=== PATIENT | female | born 1990 | race African-American/Black ===

== ENCOUNTER 2017-03-08 18:17 | Emergency (ER) | payer SELFPAY ==
[2017-03-08 18:56] VITALS: BP 125/56; PULSE 125; TEMP 99.6; BMI 23.6
--- NOTE | 2017-03-08 19:50 | PDOC ---
History of Present Illness - General Chief Complaint: Vaginal Bleeding Stated Complaint: VAGINAL BLEEDING/5 WKS Time Seen by Provider: 03/08/17 19:49 History Source: Patient Exam Limitations: No Limitations - History of Present Illness Travel History: No Initial Comments: 03/08/17 20:22 LMP: 01/30/2017 OB: Dr. Lobato [phone] 26-year-old female with a history of asthma presents to the emergency department complaining of suprapubic cramping with vaginal spotting 8 hours. Patient describes discomfort as 5/10 nonradiating intermittent cramping discomfort without fever, chills, headache, nausea/vomiting, dizziness, lightheadedness, neck pains, back pains, chest pain, shortness of breath, flank pains, urinary symptoms: Frequency/urgency/hesitancy. There are no alleviating or exacerbating factors. 03/08/17 22:[address] Lobato/ Dr. Bradley covering will call back Timing/Duration: reports: intermittent Quality: reports: mild Abdominal Pain Onset Location: reports: suprapubic Pain Radiation: reports: no radiation Past History - Past Medical History Allergies/Adverse Reactions: Allergies Allergy/AdvReac Type Severity Reaction Status Date / Time No Known Drug Allergies Allergy Verified 03/08/17 18:52 Shellfish Allergy Swelling Verified 03/08/17 18:52 Home Medications: Ambulatory Orders Amox-Tr/K Cl [Augmentin 875-125mg Tablet -] 1 tab PO BID #20 tablet 04/12/14 Ibuprofen [Motrin -] 600 mg PO TID #21 tablet 04/12/14 Anemia: No Asthma: Yes (last attack"years"ago) Cancer: No Cardiac Disorders: No CVA: No COPD: No CHF: No Dementia: No Diabetes: No GI Disorders: No Disorders: No HTN: No Hypercholesterolemia: No Liver Disease: No Seizures: No Thyroid Disease: No - Surgical History Abdominal Surgery: Yes (ECTOPIC ) - Reproductive History (#): 6 Para: 1 Cervical CA: No Dysfunctional Uterine Bleeding: No Ectopic : Yes Endometrial CA: No Therapeutic (s) & number: Yes Tubal Ligation: No Spontaneous : 3 - Immunization History Immunization Up to Date: Yes - Suicide/Smoking/Psychosocial Hx Smoking Status: Yes Smoking History: Current every day smoker Have you smoked in the past 12 months: Yes Number of Cigarettes Smoked Daily: 6 Cigars Per Day: 0 Information on smoking cessation initiated: No 'Breaking Loose' booklet given: 02/13/14 Hx Alcohol Use: No Drug/Substance Use Hx: No Substance Use Type: None Hx Substance Use Treatment: No Review of Systems - Review of Systems Able to Perform ROS?: Yes Comments:: 03/08/17 20:24 CONSTITUTIONAL: Absent: fever, chills, diaphoresis, generalized weakness, malaise, loss of appetite HEENT: Absent: rhinorrhea, nasal congestion, throat pain, throat swelling, difficulty swallowing, mouth swelling, ear pain, eye pain, visual Changes CARDIOVASCULAR: Absent: chest pain, loss of consciousness, palpitations, irregular heart rate, peripheral edema RESPIRATORY: Absent: cough, shortness of breath, dyspnea with exertion, orthopnea, wheezing, stridor, hemoptysis GASTROINTESTINAL: Absent: abdominal pain, abdominal distension, nausea, vomiting, diarrhea, constipation, melena, hematochezia GENITOURINARY: Absent: dysuria, frequency, urgency, hesitancy, hematuria, flank pain, genital pain MUSCULOSKELETAL: Absent: myalgia, arthralgia, joint swelling SKIN: Absent: rash, itching, pallor HEMATOLOGIC/IMMUNOLOGIC: Absent: easy bleeding, easy bruising, lymphadenopathy, frequent infections ENDOCRINE: Absent: unexplained weight gain, unexplained weight loss, heat intolerance, cold intolerance NEUROLOGIC: Absent: headache, focal weakness or paresthesias, dizziness, unsteady gait, seizure, mental status changes, bladder or bowel incontinence PSYCHIATRIC: Absent: anxiety, depression, suicidal or homicidal ideation, hallucinations. Is the patient limited [place] proficient: No *Physical Exam - Vital Signs Last Vital Signs Temp Pulse Resp BP Pulse Ox 99.6 F 125 H 16 125/56 100 03/08/17 18:53 03/08/17 18:53 03/08/17 18:53 03/08/17 18:53 03/08/17 18:53 - Physical Exam Comments: 03/08/17 20:24 GENERAL: Well developed, well nourished. Awake and alert. No acute distress. HEENT: Normocephalic, atraumatic. PERRLA, EOMI. No conjunctival pallor. Sclera are non- icteric. Moist mucous membranes. Oropharynx is clear. NECK: Supple. Full ROM. No JVD. Carotid pulses 2+ and symmetric, without bruits. No thyromegaly. No lymphadenopathy. CARDIOVASCULAR: Regular rate and rhythm. No murmurs, rubs, or gallops. Distal pulses are 2+ and symmetric. PULMONARY: No evidence of respiratory distress. Lungs clear to auscultation bilaterally. No wheezing, rales or rhonchi. ABDOMINAL: Soft. Non-tender. Non-distended. No rebound or guarding. No organomegaly. Normoactive bowel sounds. SKIN: Warm and dry. Normal capillary refill. No rashes. No jaundice. Pelvic: External genitalia normal without lesions. Vaginal vault is clear without blood or discharge. Cervix is long and closed. 03/08/17 20:25 ED Treatment Course - LABORATORY CBC & Chemistry Diagram: 03/08/17 20:02 03/08/17 20:02 - RADIOLOGY Radiograph Interpretation: 03/08/17 22:29 Ultrasound transvaginal: Intrauterine gestational sac like structure with estimated gestational age of 5 weeks and 3 days. No yolk sac or pole are identified. Hypo-ectatic density within the endometrium cavity surrounding the sac measuring 2.4 x 1 cm in sagittal and AP dimension suggestive of hemorrhage. Close follow-up is recommended. Complex density in the left ovary measuring 1.9 x 1.4 cm suggestive of a hemorrhagic cyst. BICYCLE TECHNICIAN consult is suggested Progress Note - Progress Note Progress Note: Spoke to Dr. Rodriguez/ pt is to f/u tomorrow at the clinic for threatened AB *DC/Admit/Observation/Transfer Diagnosis at time of Disposition: Threatened UTI (urinary tract infection) Qualifiers: Urinary tract infection type: acute cystitis Hematuria presence: without hematuria Qualified Code(s): N30.00 - Acute cystitis without hematuria - Discharge Dispostion Disposition: HOME Condition at time of disposition: Stable Admit: No - Referrals Referrals: Nessa Dupree MD [Staff Physician] - - Patient Instructions Printed Discharge Instructions: DI for Threatened , Urinary Tract Infection Additional Instructions: Your Beta is 4939.2 Follow up with at the clinic as per Dr. Dubose Take your antibiotics Increase fluids Return to the ER for severe/persistent/worsening symptoms
[2017-03-08 20:26] LABS: BASOPHIL 0.9 % (0-2.0); EOSINOPHIL 0.7 % (0-4.5); MCH 25.8 pg (25.7-33.7); MCHC 33.9 g/dl (32.0-36.0); MEAN PLT VOLUME 9.1 fl (7.5-11.1); NEUTROPHILS 70.8 % (42.8-82.8); PLATELET COUNT 258 K/MM3 (134-434); RDW 16.5 % (11.6-15.6); WHITE BLOOD COUNT 13.2 K/mm3 (4.0-10.0)
[2017-03-08 20:36] LABS: URINE APPEARANCE SLCLOUDY; URINE BILIRUBIN NEGATIVE (NEGATIVE); URINE BLOOD 3+ (NEGATIVE); URINE COLOR AMBER; URINE GLUCOSE (UA) NEGATIVE (NEGATIVE); URINE KETONE NEGATIVE (NEGATIVE); URINE NITRITE NEGATIVE (NEGATIVE)
[2017-03-08 20:44] LABS: URINE LEUK ESTERASE 2+ (NEGATIVE); URINE PROTEIN 2+ (NEGATIVE)
[2017-03-08 20:48] LABS: ANION GAP 6 (8-16); BILIRUBIN,TOTAL 0.4 mg/dL (0.2-1.0); CALCIUM 9.2 mg/dL (8.5-10.1); CO2 23 mmol/L (21-32); CREATININE 0.8 mg/dL (0.55-1.02); GLUCOSE,RANDOM 93 mg/dL (74-106); SGOT/AST 10 U/L (15-37); SGPT/ALT 15 U/L (12-78); TOT PROT 7.5 g/dl (6.4-8.2)
[2017-03-08 21:03] LABS: ALK PHOS 53 U/L (45-117)
[2017-03-08 22:01] LABS: URINE HYALINE CAST 23 /lpf; URINE MUCUS MANY; URINE RBC 24 /hpf (0-3); URINE WBC 54 /hpf (3-5)
[2017-03-08] MEDS ORDERED: NITROFURANTOIN MACROCRYSTAL 50 MG CAPSULE (FP) PO SCH (23:45)
== END 2017-03-08 23:46 | disposition home or self-care (01) ==
LOC: JER 18:17
DX: O20.0 Threatened abortion (principal); O23.11 Infections of bladder in pregnancy, first trimester; N30.90 Cystitis, unspecified without hematuria; Z3A.01 Less than 8 weeks gestation of pregnancy
CPT/HCPCS: 36415; 76817-TC; 80053; 81003; 81015; 84702; 85025; 86850; 86900; 86901; 99281-25

== ENCOUNTER 2017-11-08 13:15 | Inpatient (IN) | payer OTHER ==
--- NOTE | 2017-11-08 13:36 | PN ---
Progress Note (short form) - Note Progress Note: cx 2 cm 50 vx -3 mi, fhr cat 1, no contraction , cervidil rba discussed , cervidil inserted 1.28 pm
[2017-11-08] MEDS ORDERED: BUTORPHANOL TARTRATE 1 MG/ML VIAL IVPUSH ONE (13:41)
[2017-11-08] MEDS ORDERED: PROMETHAZINE HCL 25 MG/1 ML VIAL IVPB ONE (13:41)
--- NOTE | 2017-11-08 13:41 | HP ---
Past Medical History - Primary Care Physician PCP:: Luciano Madden - Admission Chief Complaint: 40.2 weeks, request of induction History Source: Patient Limitations to Obtaining History: No Limitations - Past Medical History Pulmonary: Yes: Asthma (since but no recent attacks, on no meds) Gastrointestinal: Yes: Gastritis (pt was taking zantac 150 mg po bid, since last admission on 02/12/14. stopped few days ago.), Other Heme/Onc: Yes: Anemia Psych: Yes: Other (insomnia) - Past Surgical History Hx Myomectomy: No Hx Transabdominal Cerclage: No - Smoking History Smoking history: Current every day smoker Have you smoked in the past 12 months: Yes Aproximately how many cigarettes per day: 6 - Alcohol/Substance Use Hx Alcohol Use: No History of Substance Use: reports: Marijuana (? stopped in december drug screen pos in november,. drug screen neg in 02/12/14 admission) - Social History ADL: Independent History of Recent Travel: No Home Medications - Allergies Allergies/Adverse Reactions: Allergies Allergy/AdvReac Type Severity Reaction Status Date / Time Shellfish Allergy Severe Swelling Verified 10/25/17 21:37 No Known Drug Allergies Allergy Verified 10/25/17 21:37 - Home Medications Home Medications: Ambulatory Orders NK [No Known Home Medication] 09/11/17 Family Disease History - Family Disease History Family Disease History: Other: Son (alive, age 4) Review of Systems - Review of Systems Constitutional: reports: Weakness Eyes: reports: No Symptoms HENT: reports: No Symptoms Neck: reports: No Symptoms Cardiovascular: reports: No Symptoms Respiratory: reports: No Symptoms Gastrointestinal: reports: Nausea Genitourinary: reports: Frequency Musculoskeletal: reports: Back Pain, Muscle Pain Integumentary: reports: No Symptoms Neurological: reports: No Symptoms Endocrine: reports: No Symptoms Hematology/Lymphatic: reports: No Symptoms Psychiatric: reports: No Symptoms Physical Exam - Maternity Constitutional: Yes: Well Nourished, No Distress, Calm Eyes: Yes: WNL, Conjunctiva Clear, EOM Intact HENT: Yes: WNL, Atraumatic, Normocephalic Neck: Yes: WNL, Supple, Trachea Midline Cardiovascular: Yes: WNL, Regular Rate and Rhythm Breast(s): Yes: WNL - Abdominal Exam/OB Fundal Height: 38 Number of Fetuses: Single Presentation: Vertex Contractions: No Intensity: Unaware Monitor Mode: External Heart Rate Location: LLQ Accelerations: Uniform Decelerations: None - Vaginal Exam/OB Speculum Exam: No Dilatation (cm): 2 cm Effacement (%): 50 Amniotic Membrane Status: Intact Presentation: Vertex/Position Station: -3 - Physical Exam Musculoskeletal: Yes: WNL Extremities: Yes: WNL Edema: Yes Edema: LLE: Trace, RLE: Trace Integumentary: Yes: WNL Deep Tendon Reflex Grade: Normal +2 ...Motor Strength: WNL Psychiatric: Yes: WNL Hemorrhage Risk Assessment - Risk Factors Medium Risk Factors: Yes: None High Risk Factors: Yes: None Risk Score: 1 Risk Level: Medium Risk Problem List - Problems (1) Post term over 40 weeks Code(s): O48.0 - POST-TERM (2) Elective induction of labor planned Code(s): [id number] - Assessment/Plan admit, fhm, cervidil induction, rba discussed
[2017-11-08] MEDS ORDERED: DEXTROSE 5%-LACTATED RINGERS 1,000 ML IV SCH (13:45)
[2017-11-08 14:49] VITALS: BMI 26.5
[2017-11-08] MEDS ORDERED: DINOPROSTONE 10 MG VAGINAL SUPPOSITORY VG ONE (17:00)
[2017-11-08] MEDS ORDERED: PROMETHAZINE HCL 25 MG/1 ML VIAL ONE (18:32)
[2017-11-08] MEDS ORDERED: BUTORPHANOL TARTRATE 1 MG/ML VIAL ONE ×2 (18:32)
[2017-11-08 20:17] LABS: BASO % 0.5 % (0-2.0); HEMATOCRIT 28.5 % (32.4-45.2); HEMOGLOBIN 9.6 GM/dL (10.7-15.3); LYMPH % 24.1 % (8-40); MCH 25.4 pg (25.7-33.7); MCHC 33.8 g/dl (32.0-36.0); MEAN CELL VOLUME 75.1 fl (80-96); MEAN PLT VOLUME 9.7 fl (7.5-11.1); MONO % 5.2 % (3.8-10.2); NEUT % 69.2 % (42.8-82.8); PLATELET COUNT 246 K/MM3 (134-434); RDW 14.7 % (11.6-15.6); WHITE BLOOD COUNT 10.7 K/mm3 (4.0-10.0)
--- NOTE | 2017-11-08 20:33 | PN ---
Progress Note (short form) - Note Progress Note: cx 4 cm 80 vx -2 arom clear, fhr cat1, irregular contraction Problem List - Problems (1) Post term over 40 weeks Code(s): O48.0 - POST-TERM (2) Elective induction of labor planned Code(s): [id number] -
[2017-11-08] MEDS ORDERED: FENTANYL/BUPIVACAINE/NS/PF - PCEA - 50 ML DISP.SYRIN EP ONE (20:34)
[2017-11-08] MEDS ORDERED: ELECTROLYTE-148 SOLN 1,000 ML IV ONE (20:43)
[2017-11-08 20:45] LABS: ANION GAP 8 (8-16); BLOOD UREA NITROGEN 10 mg/dL (7-18); CALCIUM 8.3 mg/dL (8.5-10.1); CHLORIDE 105 mmol/L (98-107); CO2 25 mmol/L (21-32); CREATININE 0.6 mg/dL (0.55-1.02); GLUCOSE,RANDOM 82 mg/dL (74-106); POTASSIUM 3.9 mmol/L (3.5-5.1); SODIUM 138 mmol/L (136-145)
[2017-11-08 20:50] LABS: INR 0.86 (0.82-1.09); PROTHROMBIN TIME (PATIENT) 9.7 SEC (9.7-13.0)
[2017-11-08] MEDS ORDERED: ELECTROLYTE-148 SOLN 1,000 ML IV SCH (21:15)
--- NOTE | 2017-11-08 21:17 | PN ---
Progress Note (short form) - Note Progress Note: cx 4 cm , cervidil removed , irregular contraction Problem List - Problems (1) Post term over 40 weeks Code(s): O48.0 - POST-TERM (2) Elective induction of labor planned Code(s): [id number] -
[2017-11-08] MEDS ORDERED: OXYTOCIN 30 UNITS in 0.9% NS 30 UNIT/500 ML INFUS.BAG IVPB SCH (21:30)
[2017-11-08] MEDS ORDERED: OXYTOCIN 30 UNITS in 0.9% NS 30 UNIT/500 ML INFUS.BAG IVPB ONE (21:30)
[2017-11-08] MEDS ORDERED: NALOXONE HCL 0.4 MG/ML VIAL IVPUSH PRN (21:56)
[2017-11-08] MEDS ORDERED: FENTANYL/BUPIVACAINE/NS/PF - PCEA - 50 ML DISP.SYRIN EP SCH (22:00)
[2017-11-08] MEDS ORDERED: OXYTOCIN 20 UNITS in 0.9% NS 20 UNIT/1,000 ML INFUS.BAG IV ONE (23:29)
[2017-11-09] MEDS ORDERED: BISACODYL 10 MG SUPP.RECT RC PRN (00:02)
[2017-11-09] MEDS ORDERED: BENZOCAINE 28 GM HEMORRHOIDAL OINTMENT TP PRN (00:02)
[2017-11-09] MEDS ORDERED: oxyCODONE HCL 5 MG TABLET PO PRN (00:02)
[2017-11-09] MEDS ORDERED: METHYLERGONOVINE MALEATE 0.2 MG/1 ML AMP IM PRN (00:02)
[2017-11-09] MEDS ORDERED: BENZOCAINE 20% 57 GM BOTTLE TP PRN (00:02)
[2017-11-09] MEDS ORDERED: WITCH HAZEL 50% (TUCKS) 40 PAD/JAR PAD TP PRN (00:02)
[2017-11-09] MEDS ORDERED: OXYTOCIN 20 UNITS in 0.9% NS 20 UNIT/1,000 ML INFUS.BAG IV SCH (00:15)
[2017-11-09] MEDS ORDERED: D5W-LR W/ 20 UNITS OXYTOCIN 1,000 ML IV SCH (00:15)
[2017-11-09] MEDS: ACETAMINOPHEN 325 MG TABLET (FP) PO PRN ×3 (03:54→20:54)
[2017-11-09] MEDS: IBUPROFEN 600 MG TABLET (FP) PO PRN ×4 (03:56→20:55)
[2017-11-09] MEDS ORDERED: OXYTOCIN 20 UNITS in 0.9% NS 20 UNIT/1,000 ML INFUS.BAG IV ONE (06:38)
--- NOTE | 2017-11-09 08:50 | PN ---
Post Progress Note - Subjective Subjective: c/o cramps Post Day: 1 Type of Delivery: Vital Signs: Vital Signs Temperature 98 F 11/09/17 06:00 Pulse Rate 65 11/09/17 06:00 Respiratory Rate 18 11/09/17 06:00 Blood Pressure 98/62 11/09/17 06:00 O2 Sat by Pulse Oximetry (%) 100 11/09/17 00:55 Breast Exam: Yes: Soft, Other (declines to BF ). No: Engorged Uterus: Yes: Fundus Firm, Fundus below umbilicus, Non-tender Lochia: Yes: Rubra Lochia, amount: Moderate Extremities: Yes: Calves non-tender Perineum: Yes: Intact Activity: Ambulating - Labs Labs: CBC WBC 10.7 K/mm3 (4.0-10.0) H 11/08/17 18:50 RBC 3.80 M/mm3 (3.60-5.2) 11/08/17 18:50 Hgb 9.6 GM/dL (10.7-15.3) L D 11/08/17 18:50 Hct 28.5 % (32.4-45.2) L D 11/08/17 18:50 MCV 75.1 fl (80-96) L 11/08/17 18:50 MCH 25.4 pg (25.7-33.7) L 11/08/17 18:50 MCHC 33.8 g/dl (32.0-36.0) 11/08/17 18:50 RDW 14.7 % (11.6-15.6) D 11/08/17 18:50 Plt Count 246 K/MM3 (134-434) 11/08/17 18:50 MPV 9.7 fl (7.5-11.1) 11/08/17 18:50 Neutrophils % 69.2 % (42.8-82.8) 11/08/17 18:50 Lymphocytes % 24.1 % (8-40) 11/08/17 18:50 Monocytes % 5.2 % (3.8-10.2) 11/08/17 18:50 Eosinophils % 1.0 % (0-4.5) 11/08/17 18:50 Basophils % 0.5 % (0-2.0) 11/08/17 18:50 Nucleated RBC % 0 % (0-0) 11/08/17 18:50 Problem List - Problems (1) follow-up Code(s): Z39.2 - ENCOUNTER FOR ROUTINE FOLLOW-UP Assessment/Plan anemia pp cbc pending
[2017-11-09] MEDS: PRENATAL VITAMINS W/ FOLIC ACID TABLET (FP) PO SCH (10:17)
[2017-11-09] MEDS: FERROUS SO4 325 MG TABLET (FP) PO SCH ×2 (10:17→21:38)
[2017-11-10 08:42] LABS: BASO % 0.4 % (0-2.0); EOS % 2.9 % (0-4.5); HEMATOCRIT 29.5 % (32.4-45.2); HEMOGLOBIN 9.8 GM/dL (10.7-15.3); LYMPH % 43.4 % (8-40); MCH 25.3 pg (25.7-33.7); MCHC 33.3 g/dl (32.0-36.0); MEAN CELL VOLUME 76.1 fl (80-96); MEAN PLT VOLUME 9.5 fl (7.5-11.1); MONO % 5.3 % (3.8-10.2); PLATELET COUNT 240 K/MM3 (134-434); RBC 3.88 M/mm3 (3.60-5.2); RDW 14.5 % (11.6-15.6); WHITE BLOOD COUNT 9.5 K/mm3 (4.0-10.0)
--- NOTE | 2017-11-10 09:33 | DS ---
Physical Exam-SIGNALS COLLECTION TECHNICIAN Vital Signs: Vital Signs Temperature 98.1 F 11/09/17 22:00 Pulse Rate 87 11/09/17 22:00 Respiratory Rate 18 11/09/17 22:00 Blood Pressure 95/50 11/09/17 22:00 O2 Sat by Pulse Oximetry (%) 100 11/09/17 00:55 Constitutional: Yes: Well Nourished Eyes: Yes: Conjunctiva Clear HENT: Yes: Atraumatic Neck: Yes: Supple Cardiovascular: Yes: Regular Rate and Rhythm Respiratory: Yes: Regular Gastrointestinal: Yes: Normal Bowel Sounds Renal/: Yes: WNL External Genitalia: Yes: Normal Vaginal Exam: Yes: Normal Cervix: Yes: Normal Uterus: Yes: Firm ....Post : Yes: Uterus firm, Moderate lochia serosa Musculoskeletal: Yes: WNL Extremities: Yes: WNL Neurological: Yes: Alert, Oriented ...Motor Strength: WNL Psychiatric: Yes: Alert, Oriented Labs: CBC, BMP 11/10/17 08:00 11/08/17 18:50 Delivery - Delivery Type of Anesthesia: Epidural Episiotomy/Laceration: None EBL (cc): 300 Delivery, Single - Stages of Labor Date 1st Stage Initiatied: 11/08/17 Time 1st Stage Initiated: 18:40 Date 2nd Stage Initiated: 11/08/17 Time 2nd Stage Initiated: 20:30 Date of Delivery: 11/08/17 Time of Delivery: 23:51 Time Placenta Delivered: 23:55 - Condition of Environmental Engineering Intern/Batch Trucker Present: No Gender: Male Weight: 6 lb 14 oz Position: Left, OA Total Hours ROM (Hrs/Mins): 3 HOURS/ 21 MINUTES - 1 Minute Total Score: 9 5 Minutes Total Score: 9 - [place] Feeding Plan Initial Plan: Elected not to breastfeed exclusively throughout hospitalization Discharge Summary Reason For Visit: INDUCTION Current Active Problems Elective induction of labor planned (Acute) Post term over 40 weeks (Acute) follow-up (Acute) Procedures: Principal: Spontaneous vaginal delivery Hospital Course: Routine care Condition: Good - Instructions Diet, Activity, Other Instructions: Regular diet No douching, no sexual intercourse x 6 weeks F/U in clinic in 6 weeks Disposition: HOME - Home Medications Comprehensive Discharge Medication List: Ambulatory Orders NK [No Known Home Medication] 09/11/17
[2017-11-10 09:39] VITALS: BP 110/64; PULSE 68; TEMP 98.7
[2017-11-10] MEDS: FERROUS SO4 325 MG TABLET (FP) PO SCH (10:15)
[2017-11-10] MEDS: PRENATAL VITAMINS W/ FOLIC ACID TABLET (FP) PO SCH (10:15)
[2017-11-10] MEDS: IBUPROFEN 600 MG TABLET (FP) PO PRN (10:19)
[2017-11-10] MEDS: ACETAMINOPHEN 325 MG TABLET (FP) PO PRN (10:19)
[2017-11-10] MEDS ORDERED: SENNOSIDES/DOCUSATE COMBO (SENNA PLUS) TABLET (UD) PO PRN (22:00)
== END 2017-11-10 11:35 | disposition home or self-care (01) | DRG 560 ==
LOC: JLDR 13:15 → J3W 11-09 02:00
PROVIDERS: ADMIT Obstetrics & Gynecology; ATTEND Obstetrics & Gynecology
PROC: 10E0XZZ Delivery of Products of Conception, External Approach (ICD-10-PCS; principal; 2017-11-08)
DX: O48.0 Post-term pregnancy (principal); O26.893 Other specified pregnancy related conditions, third trimester; J45.909 Unspecified asthma, uncomplicated; O99.333 Smoking (tobacco) complicating pregnancy, third trimester; F17.210 Nicotine dependence, cigarettes, uncomplicated; Z3A.40 40 weeks gestation of pregnancy; Z37.0 Single live birth
CPT/HCPCS: 36415; 59409; 80048; 85025; 85610; 85730; 86593; 86850; 86900; 86901

== ENCOUNTER 2022-03-29 13:10 | Day surgery (SDC) | payer OTHER ==
[2022-03-29 13:47] VITALS: BMI 25.0
[2022-03-29] MEDS ORDERED: morphine CARPU-JECT 2 MG/1 ML DISP.SYRIN IVPUSH ONE ×3 (15:21→17:33)
[2022-03-29] MEDS ORDERED: morphine CARPU-JECT 4 MG/1 ML DISP.SYRIN IVPUSH ONE ×2 (16:37→18:50)
[2022-03-29 16:51] LABS: BASO % 0.6 % (0-2.0); EOS % 1.5 % (0-4.5); HEMATOCRIT 31.5 % (32.4-45.2); LYMPH % 31.9 % (8-40); MCH 22.9 pg (25.7-33.7); MCHC 31.9 g/dl (32.0-36.0); MEAN CELL VOLUME 71.7 fl (80-96); MEAN PLT VOLUME 8.4 fl (7.5-11.1); MONO % 6.2 % (3.8-10.2); NEUT % 59.8 % (42.8-82.8); PLATELET COUNT 308 10^3/uL (134-434); RBC 4.39 M/mm3 (3.60-5.2); RDW 19.6 % (11.6-15.6); WHITE BLOOD COUNT 9.9 K/mm3 (4.0-10.0)
[2022-03-29 17:12] LABS: CALCIUM 9.3 mg/dL (8.5-10.1)
[2022-03-29 17:15] LABS: CREATININE 0.7 mg/dL (0.55-1.3)
[2022-03-29 17:17] LABS: BILIRUBIN,TOTAL 0.3 mg/dL (0.2-1); TOT PROT 7.5 g/dl (6.4-8.2)
[2022-03-29] MEDS ORDERED: morphine SULFATE 4 MG/ML VIAL ONE ×2 (17:29→19:36)
[2022-03-29] MEDS ORDERED: LACTATED RINGERS SOLUTION 1000 ML INFUS.BAG IV ONE (18:50)
[2022-03-29] MEDS ORDERED: SUCCINYLCHOLINE CHLORIDE 200 MG/10 ML SYRINGE ONE ×2 (19:50→20:18)
[2022-03-29] MEDS ORDERED: PROPOFOL 20 ML ONE ×2 (19:50→20:36)
[2022-03-29] MEDS ORDERED: ROCURONIUM BROMIDE 50 MG/5 ML SYRINGE ONE (19:50)
[2022-03-29] MEDS ORDERED: DEXAMETHASONE SOD PHOSPHATE 4 MG/1 ML VIAL ONE (19:50)
[2022-03-29] MEDS ORDERED: MIDAZOLAM HCL 2 MG/2 ML SINGLE DOSE VIAL ONE ×2 (20:13→22:00)
[2022-03-29] MEDS ORDERED: BUPIVACAINE HCL/PF 0.25% (2.5MG/ML) 10 ML VIAL IJ ONE (20:47)
[2022-03-29] MEDS ORDERED: GLYCOPYRROLATE 0.2 MG/1 ML VIAL ONE (21:21)
[2022-03-29] MEDS ORDERED: NEOSTIGMINE METHYLSULFATE 0.5 MG/ML - 10 ML MDV ONE (21:21)
[2022-03-29] MEDS ORDERED: ACETAMINOPHEN 325 MG TABLET (FP) PO PRN (21:37)
[2022-03-29] MEDS ORDERED: IBUPROFEN 600 MG TABLET (FP) PO PRN (21:37)
[2022-03-29] MEDS ORDERED: ELECTROLYTE-148 SOLN 1,000 ML IV SCH (21:45)
[2022-03-29] MEDS ORDERED: LACTATED RINGERS SOLUTION 1,000 ML IV SCH (22:00)
[2022-03-29] MEDS: HYDROmorphone HCl 2 MG/ML VIAL IVPUSH PRN ×2 (22:15→22:30)
[2022-03-29] MEDS ORDERED: HYDROmorphone HCl 2 MG/ML VIAL ONE (22:35)
[2022-03-29] MEDS ORDERED: IBUPROFEN 800 MG/8 ML IJ IVPB PRN (23:12)
[2022-03-30 05:04] VITALS: BP 110/67; PULSE 76; RESP 18; TEMP 98.8
== END 2022-03-30 00:15 | disposition home or self-care (01) ==
LOC: JER 13:10 → JASU-SURG 19:34 → J3W 23:05 → JASU-SURG 03-30 00:15
PROVIDERS: ATTEND Student in an Organized Health Care Education/Training Program
PROC: 0UT54ZZ Resection of Right Fallopian Tube, Percutaneous Endoscopic Approach (ICD-10-PCS; 2022-03-29)
PROC: 10T24ZZ Resection of Products of Conception, Ectopic, Percutaneous Endoscopic Approach (ICD-10-PCS; principal; 2022-03-29 19:26)
DX: O00.101 Right tubal pregnancy without intrauterine pregnancy (principal)
CPT/HCPCS: 36415; 76817-TC; 80053; 84702; 85025; 85730; 86850; 86900; 86901; 88305-TC; 94760; 99285-25; C9803-CS; U0003; U0005

== ENCOUNTER 2022-04-05 18:02 | Emergency (ER) | payer OTHER ==
[2022-04-05 18:21] VITALS: BMI 25.0
[2022-04-05] MEDS ORDERED: SODIUM CHLORIDE 1,000 ML IV STA (20:36)
[2022-04-05] MEDS ORDERED: morphine CARPU-JECT 4 MG/1 ML DISP.SYRIN IVPUSH ONE (20:43)
[2022-04-05] MEDS ORDERED: morphine SULFATE 4 MG/ML VIAL ONE (21:32)
[2022-04-05 21:58] LABS: BASO % 0.9 % (0-2.0); EOS % 1.6 % (0-4.5); HEMATOCRIT 29.5 % (32.4-45.2); HEMOGLOBIN 9.7 GM/dL (10.7-15.3); LYMPH % 36.3 % (8-40); MCH 23.1 pg (25.7-33.7); MCHC 32.8 g/dl (32.0-36.0); MEAN CELL VOLUME 70.7 fl (80-96); MEAN PLT VOLUME 7.5 fl (7.5-11.1); MONO % 7.1 % (3.8-10.2); NEUT % 54.1 % (42.8-82.8); PLATELET COUNT 315 10^3/uL (134-434); RBC 4.18 M/mm3 (3.60-5.2); RDW 19.6 % (11.6-15.6); WHITE BLOOD COUNT 7.8 K/mm3 (4.0-10.0)
[2022-04-05 22:19] LABS: ALBUMIN 3.5 g/dl (3.4-5.0); BLOOD UREA NITROGEN 7.1 mg/dL (7-18)
[2022-04-05 22:22] LABS: CREATININE 0.7 mg/dL (0.55-1.3)
[2022-04-05 22:24] LABS: BILIRUBIN,TOTAL 0.3 mg/dL (0.2-1); TOT PROT 6.7 g/dl (6.4-8.2)
[2022-04-05 22:33] LABS: EPI CELLS 20 /uL (0-25.1); HYALINE CASTS 6 /uL (0-3.1); PH,URINE 6.5 (5.0-8.0); URINE APPEARANCE CLEAR; URINE BACTERIA 125 /uL (0-1359); URINE BILIRUBIN NEGATIVE (NEGATIVE); URINE COLOR YELLOW; URINE GLUCOSE (UA) NEGATIVE (NEGATIVE); URINE KETONE TRACE (NEGATIVE); URINE LEUK ESTERASE 2+ (NEGATIVE); URINE NITRITE NEGATIVE (NEGATIVE); URINE PROTEIN NEGATIVE (NEGATIVE); URINE RBC 34 /uL (0-23.9); URINE WBC 194 /uL (0-25.8)
[2022-04-05] MEDS ORDERED: morphine CARPU-JECT 2 MG/1 ML DISP.SYRIN IVPUSH ONE (23:38)
[2022-04-05] MEDS ORDERED: LACTATED RINGERS SOLUTION 1,000 ML/1,000 ML INFUS.BAG IV SCH (23:45)
[2022-04-06] MEDS ORDERED: CEFTRIAXONE 1,000 MG in DEXTROSE 5%-WATER - 50 ML IVPB ONE (00:05)
[2022-04-06] MEDS ORDERED: SODIUM CHLORIDE 1,000 ML IV SCH (00:15)
[2022-04-06] MEDS ORDERED: CEFTRIAXONE 1 GM/50 ML BAG ONE (00:36)
[2022-04-06 01:09] VITALS: BP 112/78; PULSE 76; RESP 16; TEMP 97.9
== END 2022-04-06 01:55 | disposition home or self-care (01) ==
LOC: JER 18:02
PROC: 3E03329 Introduction of Other Anti-infective into Peripheral Vein, Percutaneous Approach (ICD-10-PCS; principal; 2022-04-05)
PROC: 3E033NZ Introduction of Analgesics, Hypnotics, Sedatives into Peripheral Vein, Percutaneous Approach (ICD-10-PCS; 2022-04-05)
PROC: 3E033NZ Introduction of Analgesics, Hypnotics, Sedatives into Peripheral Vein, Percutaneous Approach (ICD-10-PCS; 2022-04-05)
PROC: 3E0337Z Introduction of Electrolytic and Water Balance Substance into Peripheral Vein, Percutaneous Approach (ICD-10-PCS; 2022-04-05)
PROC: 3E0337Z Introduction of Electrolytic and Water Balance Substance into Peripheral Vein, Percutaneous Approach (ICD-10-PCS; 2022-04-05)
DX: R10.2 Pelvic and perineal pain (principal); N30.00 Acute cystitis without hematuria
CPT/HCPCS: 36415; 74177-TC; 76830-TC; 80053; 81003; 83605; 83690; 84702; 85025; 87040; 87086; 99285-25; Q9967